=== PATIENT | female | born 1955 | race Caucasian/White ===

== ENCOUNTER 2019-09-19 09:51 | Outpatient (CLI) | payer BC, SELFPAY ==
--- NOTE | 2019-09-19 09:58 | MM_ITS ---
WS: [id number] SCREENING DIGITAL MAMMOGRAM WITH CAD HISTORY: SCREENING COMPARISON: 08/23/2017 and 06/15/2014 Bilateral CC and MLO views submitted. Computer aided detection analyzed. Breast composition: There are scattered areas of fibroglandular density. No suspicious masses, microc alcifications or architectural distortion. MM/[place] [id number] IMPRESSION: BI-RADS: 1-Negative FOLLOW UP: 1 Year Follow-up
== END 2019-09-19 09:52 | disposition home or self-care (01) ==
LOC: RADSHAW 09:57
PROVIDERS: Family Provider Family Medicine; Visit Provider Family Medicine
DX: Z12.31 Encounter for screening mammogram for malignant neoplasm of breast (principal)
CPT/HCPCS: 77067

== ENCOUNTER → 2019-11-21 12:28 | Outpatient (BNVA) | payer BC, SELFPAY | PROVIDERS: Family Provider Family Medicine; PCP Family Medicine; Visit Provider Internal Medicine Rheumatology | DX: M19.90 Unspecified osteoarthritis, unspecified site (principal); Z79.899 Other long term (current) drug therapy; Z11.59 Encounter for screening for other viral diseases; M77.9 Enthesopathy, unspecified; M54.89 Other dorsalgia | CPT/HCPCS: 85025 ==

== ENCOUNTER 2019-11-21 12:54 | Outpatient (CLI) | payer BC, SELFPAY ==
--- NOTE | 2019-11-21 13:01 | XR_ITS ---
WS: [id number] XR pelvis 1-2V* [id number] REASON FOR EXAM: inflammatory arthritis FINDINGS: Both the right left trochanter show degenerate changes. The hip joints appear to be normal. The sacroiliac joints were normal. The ilium, ischium, and pubis are normal. XR/XR pelvis 1-2V* [id number] IMPRESSION: Degenerate changes of the greater trochanter regions of both hip joints.
--- NOTE | 2019-11-21 13:01 | XR_ITS ---
WS: [id number] XR hand LT min 3V* [id number] REASON FOR EXAM: inflammatory arthritis FINDINGS degenerated changes of the first metacarpal carpal articulation. Considerable spurring is pr esent. There is swelling of soft tissue the middle interphalangeal joints of the second, third, fourth phala nges. XR/XR hand LT min 3V* [id number] IMPRESSION: Degenerated changes of the first metacarpal carpal carpal articulation. Marked soft tissue swelling of the interphalangeal joints of the second, third, fourth phalanges.
--- NOTE | 2019-11-21 13:01 | XR_ITS ---
WS: [id number] XR foot RT min 3V* [id number] REASON FOR EXAM: inflammatory arthritis FINDINGS: Prominent hallux angle with degenerate changes of the first metatarsal phalangeal junction and spurring is seen off the head of the first metatarsal. Large retrocalcaneal spur is seen. As well as a calcaneal spur. XR/XR foot RT min 3V* [id number] IMPRESSION: Calcaneal spur Retrocalcaneal exostosis Degenerate changes first metatarsal head. Psoarosis arthritis should be included in the differential diagnosis of both fe et.
--- NOTE | 2019-11-21 13:01 | XR_ITS ---
WS: [id number] XR foot LT min 3V* [id number] REASON FOR EXAM: inflammatory arthritis FINDINGS: Increase hallux angle first metatarsal tarsal phalangeal joint with degenerate changes. There is spurring seen off the head of the fifth metatarsal tarsal medially. No destructive changes of the phalanges metacarpals tarsals are tarsals. Calcaneal spur with retrocalcaneal exostosis. End reabsorptive changes off the posterior aspects of t he calcaneus. XR/XR foot LT min 3V* [id number] IMPRESSION: Hallux valgus changes Calcaneal spur line destructive changes off the posterior calcaneus Mixed arthritis should be considered with this pattern.
--- NOTE | 2019-11-21 13:01 | XR_ITS ---
WS: [id number] XR chest 2V* [id number] REASON FOR EXAM: inflammatory arthritis FINDINGS: The heart and mediastinum were normal. The lung rogers are well aerated. No active infiltrates, no pneumonia, pleural effusion, pulmonary ed vani, are mass effect. The hilum and apices normal. No osseous abnormalities other than degenerate spurring the thoracic spine. XR/XR chest 2V* [id number] IMPRESSION: Negative chest for active pathology.
--- NOTE | 2019-11-21 13:01 | XR_ITS ---
WS: [id number] XR hand RT min 3V* [id number] REASON FOR EXAM: inflammatory arthritis FINDINGS: Degenerated changes of the proximal first metacarpal carpal articulation. There is swelling of the interphalangeal joints of the second through fifth phalanges. No definite de structive changes. XR/XR hand RT min 3V* [id number] IMPRESSION: Degenerate changes of the first metacarpal carpal articulation. Soft tissue swelling of the second through the fifth intrapharyngeal joints.
== END 2019-11-21 12:55 | disposition home or self-care (01) ==
LOC: RADWPI 12:58
PROVIDERS: Family Provider Family Medicine; PCP Family Medicine; Visit Provider Internal Medicine Rheumatology
DX: M16.0 Bilateral primary osteoarthritis of hip (principal); M79.89 Other specified soft tissue disorders; Z79.899 Other long term (current) drug therapy; M19.90 Unspecified osteoarthritis, unspecified site; Z11.59 Encounter for screening for other viral diseases; Z11.1 Encounter for screening for respiratory tuberculosis; M77.9 Enthesopathy, unspecified; M54.89 Other dorsalgia; Z72.89 Other problems related to lifestyle
CPT/HCPCS: 36415; 71046; 72170; 73130; 73630; 80076; 82306; 82565; 84550; 85651; 86140; 86431; 86480; 86704; 86803; 86812; 87340; 99204

== ENCOUNTER 2020-02-08 13:47 | Outpatient (CLI) | payer BC, SELFPAY ==
--- NOTE | 2020-02-08 15:18 | PFTS_ITS ---
Date of Study:02/08/20 Date of Dictation: MECHANICS: Forced vital capacity (FVC) is normal. Forced expiratory volume in one second (FEV1) is normal.. FEV1/FVC is normal.. FLOW VOLUME LOOP: normal.. LUNG VOLUMES: Total lung capacity (TLC) is normal.. Residual volume (RV) is normal.. DIFFUSING CAPACITY FOR CARBON MONOXIDE: normal.. INTERPRETATION: The pulmonary function tests are normal. . MTDD
== END 2020-02-08 13:48 | disposition home or self-care (01) ==
PROVIDERS: Family Provider Family Medicine; PCP Family Medicine; Visit Provider Family Medicine
DX: R05 Cough (principal)
CPT/HCPCS: 94010; 94726; 94729

== ENCOUNTER 2020-02-23 10:34 | Outpatient (CLI) | payer BC, SELFPAY ==
--- NOTE | 2020-02-23 11:00 | MR_ITS ---
WS: [id number] MRI RIGHT KNEE NONCONTRAST TECHNIQUE: Axial PD, coronal PD fat sat, coronal PD, sagittal PD, and sagittal PD fat-sat images obta ined. CLINICAL INFORMATION: M25.469 Effusion, unspecified knee COMPARISON: None. FINDINGS: Distal quadriceps and patella tendons are intact. Moderate hypertrophic patella. Small joint effusion . Tiny amount of prepatellar soft tissue edema. Mild chronic thinning of the medial and lateral meniscus which appear intact. No acute appearing meni scal tears. Anterior and posterior cruciate ligaments are intact. Moderate to advanced chondromalacia patella with focal cartilage defects in the medial and lateral pa tella facet. Small amount of subchondral edema. Moderate narrowing at the patellofemoral articulation . Medial and lateral collateral ligaments are intact. Normal signal in the tibial plateau and femoral condyles. MR/MR knee RT wo con* [id number] IMPRESSION: 1. Anterior and posterior cruciate ligament are intact. 2. Moderate to advanced chondromalacia patella with a small amount of subchond ral edema. Moderate narrowing at the patellofemoral articulation. 3. Small joint effusion. 4. No acute meniscal tears. 5. Mild to moderate narrowing involving the medial greater than lateral joint compartments. Mild chondromalacia.
== END 2020-02-23 10:35 | disposition home or self-care (01) ==
LOC: RADSHAW 10:38
PROVIDERS: PCP Family Medicine; Visit Provider Internal Medicine Rheumatology
DX: M25.461 Effusion, right knee (principal); M25.561 Pain in right knee; M22.41 Chondromalacia patellae, right knee; R60.9 Edema, unspecified
CPT/HCPCS: 73721

== ENCOUNTER 2020-04-01 07:30 | Outpatient (RCR) | payer BC, SELFPAY | END 2020-04-05 23:59 | disposition home or self-care (01) | LOC: SPT 07:30 | PROVIDERS: PCP Family Medicine; Referring Provider Internal Medicine Rheumatology; Visit Provider Internal Medicine Rheumatology | DX: M19.90 Unspecified osteoarthritis, unspecified site (principal) | CPT/HCPCS: 97161 ==

== ENCOUNTER 2020-04-06 06:00 | Outpatient (RCR) | payer BC, SELFPAY | END 2020-05-06 23:59 | disposition home or self-care (01) | LOC: SPT 06:00 | PROVIDERS: PCP Family Medicine; Referring Provider Internal Medicine Rheumatology; Visit Provider Internal Medicine Rheumatology | DX: M19.90 Unspecified osteoarthritis, unspecified site (principal) | CPT/HCPCS: 97110 ==

== ENCOUNTER 2020-05-03 11:04 | Outpatient (CLI) | payer BC, SELFPAY ==
--- NOTE | 2020-05-03 11:10 | XR_ITS ---
WS: [id number] Chest 2 views, 05/03/2020 Clinical Data: Pneumonia resolution Comparison: PA and lateral chest, 01/23/2020. Findings: No nodules, masses or effusions are seen. The heart is normal. The pulmonary vascularity is not increased. No pneumonia or pneumothorax is seen. XR/XR chest 2V* [id number] Impression: Negative chest.
[2020-05-03 11:34] LABS: Basophils # 0.1 10^3/uL (0.0-0.1); Basophils % 0.6 %; Eosinophils # 0.4 10^3/uL (0.0-0.8); Eosinophils % 4.2 %; Hematocrit 43.8 % (37.0-47.0); Hemoglobin 14.5 g/dL (11.5-15.3); Lymphocytes # 2.7 10^3/uL (0.8-4.8); Lymphocytes % 27.2 %; Mean Corpuscular HGB Conc 33.1 g/dL (30.0-36.0); Mean Corpuscular Hemoglobin 30.5 pg (28.0-34.0); Mean Corpuscular Volume 92.2 fL (81-99); Mean Platelet Volume 10.2 fL (7.4-10.4); Monocytes # 0.7 10^3/uL (0.2-0.9); Monocytes % 7.5 %; Neutrophils # 5.96 10^3/uL (1.8-7.7); Neutrophils % 60.3 %; Nucleated Red Blood Cells % 0 %; Platelet Count 279 10^3/cmm (130-400); Red Blood Count 4.75 10^6/uL (4.1-5.3); Red Cell Distribution Width 14.3 % (12.1-15.1); White Blood Count 9.9 10^3/uL (4.0-10.0)
[2020-05-06 16:32] LABS: Alternaria Alternata (M6) Ige <0.10 kU/L; Alternaria Class 0; Bermuda Class 0; Bermuda Grass (G2) Ige <0.10 kU/L; Cat Dander (E1) Ige 0.26 kU/L; Cat Dander Class 0/1; Common Ragweed (Short) (W1) Ig 0.38 kU/L; D. Farinae Class 0/1; Dermatophagoides Class 0/1; Dermatophagoides Farinae (D2) 0.13 kU/L; Dermatophagoides Pteronyssinus 0.17 kU/L; Dog Dander (E5) Ige 0.53 kU/L; Dog Dander Class 1; Elm (T8) Ige <0.10 kU/L; Elm Class 0; English Plantain (W9) Ige <0.10 kU/L; English Plantain Class 0; House Dust (Greer) (H1) Ige 0.21 kU/L; House Dust (Hollister- Stier) 0.63 kU/L; House Dust Class 0/1; House Dust Class 1; Immunoglobulin E 76 kU/L (<OR=114); Immunoglobulin E 83 kU/L (<OR=114); Johnson Grass (G10) Ige <0.10 kU/L; Johnson Grass Cl 0; June Grass Class 0; June Grass(Kentucky Blue) (G8) <0.10 kU/L; Lamb'S Quarters (Goose Foot) <0.10 kU/L; Lamb'S Quarters Class 0; Maple (Box Elder) (T1) Ige <0.10 kU/L; Maple Class 0; Meadow Fescue (G4) Ige <0.10 kU/L; Meadow Fescue Class 0; Mucor Racemosus Class 0; Oak (T7) Ige <0.10 kU/L; Oak Class 0; Orchard Grass (Cocksfoot) (G3) <0.10 kU/L; Penicillium Class 0; Penicillium Notatum (M1) Ige <0.10 kU/L; Perennial Rye Grass (G5) Ige <0.10 kU/L; Perennial Rye Grass Class 0; Ragweeed Class 1; Rough Marsh Elder (W16) Ige <0.10 kU/L; Rough Marsh Elder Class 0; Sweet Vernal Class 0; Sweet Vernal Grass (G1) Ige <0.10 kU/L; Timothy Grass (G6) Ige <0.10 kU/L; Timothy Grass Class 0
[2020-05-07 19:27] LABS: Aspergillus Fumigatus, Igg Ab, 13.9 mg/L (<=102)
== END 2020-05-03 11:05 | disposition home or self-care (01) ==
LOC: RAD 11:07
PROVIDERS: PCP Family Medicine; Visit Provider Internal Medicine Pulmonary Disease
DX: J30.9 Allergic rhinitis, unspecified (principal); R05 Cough; R06.2 Wheezing; R06.02 Shortness of breath
CPT/HCPCS: 36415; 71046; 82785; 85025; 86003

== ENCOUNTER 2020-05-07 06:00 | Outpatient (RCR) | payer BC, SELFPAY | END 2020-05-20 16:09 | disposition home or self-care (01) | LOC: SPT 06:00 | PROVIDERS: PCP Family Medicine; Referring Provider Internal Medicine Rheumatology; Visit Provider Internal Medicine Rheumatology | DX: M19.90 Unspecified osteoarthritis, unspecified site (principal) | CPT/HCPCS: 97110 ==

== ENCOUNTER → 2020-05-17 09:50 | Outpatient (BNVA) | payer BC, SELFPAY | PROVIDERS: PCP Family Medicine; Visit Provider Internal Medicine | DX: Z11.59 Encounter for screening for other viral diseases (principal) | CPT/HCPCS: 87635 ==

== ENCOUNTER 2020-05-20 13:17 | Outpatient (CLI) | payer BC, SELFPAY ==
--- NOTE | 2020-05-20 15:01 | PFTS_ITS ---
Date of Study:05/20/20 Date of Dictation: MECHANICS: Forced vital capacity (FVC) is normal. Forced expiratory volume in one second (FEV1) is normal. FEV1/FVC is normal. FLOW VOLUME LOOP: Normal. LUNG VOLUMES: Not measured DIFFUSING CAPACITY FOR CARBON MONOXIDE: Not measured INTERPRETATION: The prebronchodilator spirometry is normal. There is no significant postbronchodilator response. The methacholine challenge test was negative. PC 20 was not achieved. MTDD
== END 2020-05-20 13:18 | disposition home or self-care (01) ==
PROVIDERS: PCP Family Medicine; Visit Provider Internal Medicine Pulmonary Disease
DX: R05 Cough (principal)
CPT/HCPCS: 94070; J7611

== ENCOUNTER → 2020-07-18 11:16 | Outpatient (BNVA) | payer BC, SELFPAY | PROVIDERS: PCP Family Medicine; Visit Provider Internal Medicine Rheumatology | DX: M19.041 Primary osteoarthritis, right hand (principal); M19.042 Primary osteoarthritis, left hand; M77.9 Enthesopathy, unspecified; M11.232 Other chondrocalcinosis, left wrist; M77.00 Medial epicondylitis, unspecified elbow; M77.10 Lateral epicondylitis, unspecified elbow; Z79.899 Other long term (current) drug therapy; Z87.891 Personal history of nicotine dependence | CPT/HCPCS: 99214 ==

== ENCOUNTER → 2020-09-17 10:57 | Outpatient (BNVA) | payer BC, SELFPAY | PROVIDERS: PCP Family Medicine; Visit Provider Internal Medicine Rheumatology | DX: Z79.899 Other long term (current) drug therapy (principal) | CPT/HCPCS: 36415; 80076; 82565; 85025; 85651; 86140 ==

== ENCOUNTER 2020-10-03 11:46 | Outpatient (CLI) | payer BC, SELFPAY ==
--- NOTE | 2020-10-03 11:52 | XR_ITS ---
WS: [id number] CHEST 2 VIEWS HISTORY: K21.9 - Gastro-esophageal reflux disease without esophagitis COMPARISON: 05/03/2020 Lungs: Clear with no abnormality. No pleural effusion or pneumothorax. Cardiac size: Normal. Mediastinum/Aorta: Normal mediastinum. Bones: Thoracolumbar scoliosis. XR/XR chest 2V* [id number] IMPRESSION: Normal chest.
== END 2020-10-03 11:47 | disposition home or self-care (01) ==
LOC: RADWPI 11:50
PROVIDERS: PCP Family Medicine; Visit Provider Internal Medicine Rheumatology
DX: K21.9 Gastro-esophageal reflux disease without esophagitis (principal)
CPT/HCPCS: 71046

== ENCOUNTER 2020-10-29 10:55 | Outpatient (CLI) | payer BC, SELFPAY ==
--- NOTE | 2020-10-29 11:05 | MM_ITS ---
WS: [id number] Exam: [place] [id number] Date/Time of Exam: 10/29/2020 11:21 AM Reason For Exam: SCREENING VIEWS: MLO and CC views both breasts. Comparison made with prior exam of 09/19/2019 and 2016. Findings: There was no sign of mass, architectural distortion or suspicious calcification in either breast. Sc attered fibroglandular densities MM/[place] [id number] Impression: BI-RADS: 2-Benign FOLLOW-UP: 1 Year Follow-up This mammogram was also analyzed by the Computer Aided Detection System R2 Imag e Steam Room Attendant.
== END 2020-10-29 10:56 | disposition home or self-care (01) ==
PROVIDERS: PCP Family Medicine; Visit Provider Family Medicine
DX: Z12.31 Encounter for screening mammogram for malignant neoplasm of breast (principal)
CPT/HCPCS: 77067

== ENCOUNTER → 2020-12-10 12:45 | Outpatient (BNVA) | payer BC, SELFPAY | PROVIDERS: PCP Family Medicine; Visit Provider Internal Medicine Rheumatology | DX: M19.041 Primary osteoarthritis, right hand (principal); M19.042 Primary osteoarthritis, left hand; Z79.899 Other long term (current) drug therapy; M77.9 Enthesopathy, unspecified; M11.20 Other chondrocalcinosis, unspecified site; Z87.891 Personal history of nicotine dependence | CPT/HCPCS: 99214 ==

== ENCOUNTER → 2021-03-19 14:47 | Outpatient (BNVA) | payer BC, SELFPAY | PROVIDERS: PCP Family Medicine; Visit Provider Internal Medicine Rheumatology | DX: M06.9 Rheumatoid arthritis, unspecified (principal); M19.90 Unspecified osteoarthritis, unspecified site; Z79.899 Other long term (current) drug therapy; M77.9 Enthesopathy, unspecified; M11.20 Other chondrocalcinosis, unspecified site; Z87.891 Personal history of nicotine dependence | CPT/HCPCS: 36415; 80076; 82565; 85025; 86140; 99214 ==

== ENCOUNTER → 2021-07-08 15:17 | Outpatient (BNVA) | payer MEDICARE, SELFPAY | PROVIDERS: PCP Family Medicine; Referring Provider Family Medicine; Visit Provider Podiatrist Foot & Ankle Surgery | DX: M21.612 Bunion of left foot (principal); M21.611 Bunion of right foot; M19.072 Primary osteoarthritis, left ankle and foot; M79.671 Pain in right foot; M79.672 Pain in left foot | CPT/HCPCS: 73630 ==

== ENCOUNTER → 2021-10-06 14:58 | Outpatient (BNVA) | payer MEDICARE, SELFPAY | PROVIDERS: PCP Family Medicine; Visit Provider Internal Medicine Rheumatology | DX: M19.041 Primary osteoarthritis, right hand (principal); M19.042 Primary osteoarthritis, left hand; M11.20 Other chondrocalcinosis, unspecified site; M77.11 Lateral epicondylitis, right elbow; M77.12 Lateral epicondylitis, left elbow; M77.01 Medial epicondylitis, right elbow; M77.02 Medial epicondylitis, left elbow; Z82.61 Family history of arthritis | CPT/HCPCS: 99214 ==

== ENCOUNTER 2021-11-12 13:05 | Outpatient (CLI) | payer MEDICARE, SELFPAY ==
--- NOTE | 2021-11-12 13:10 | MM_ITS ---
WS: [id number] BILATERAL SCREENING 3D TOMOSYNTHESIS DIGITAL MAMMOGRAM WITH CAD HISTORY: SCREENING COMPARISON: 10/29/2020, 09/19/2019 and 08/23/2017 Bilateral CC and MLO views submitted. Computer aided detection analyzed. Breast composition: There are scattered areas of fibroglandular density. No suspicious masses, microc alcifications or architectural distortion. Focal scar in the medial inferior LEFT breast is probably from prior documented staph infection. MM/[place] [id number] IMPRESSION: BI-RADS: 2-Benign FOLLOW UP: 1 Year Follow-up
== END 2021-11-12 13:06 | disposition home or self-care (01) ==
LOC: RADSHAW 13:06
PROVIDERS: PCP Family Medicine; Visit Provider Family Medicine
DX: Z12.31 Encounter for screening mammogram for malignant neoplasm of breast (principal)
CPT/HCPCS: 77063; 77067

== ENCOUNTER 2022-12-09 12:29 | Outpatient (CLI) | payer MEDICARE, SELFPAY ==
--- NOTE | 2022-12-09 12:47 | MM_ITS ---
WS: [id number] BILATERAL 3D TOMOSYNTHESIS DIGITAL SCREENING MAMMOGRAPHY WITH CAD CLINICAL INFORMATION: SCREENING HISTORY: Screening mammogram. No current complaints. COMPARISON: 2021 TECHNIQUE: Bilateral CC and MLO views. FINDINGS: Scattered fibroglandular densities bilaterally. No suspicious focal mass, asymmetry, calcifications, or architectural distortion. No evidence of malignancy. Vascular calcification. A few punctate calcif ications. MM/[place] [id number] IMPRESSION: BI-RADS: 2-Benign FOLLOW UP: 1 Year Follow-up Recommend return to annual screening mammography.
== END 2022-12-09 12:30 | disposition home or self-care (01) ==
LOC: RAD 12:31
PROVIDERS: PCP Family Medicine; Visit Provider Family Medicine
DX: Z12.31 Encounter for screening mammogram for malignant neoplasm of breast (principal)
CPT/HCPCS: 77063; 77067

== ENCOUNTER → 2023-03-31 14:55 | Outpatient (BNVA) | payer MEDICARE, SELFPAY | PROVIDERS: PCP Family Medicine; Visit Provider Internal Medicine Rheumatology | DX: M06.041 Rheumatoid arthritis without rheumatoid factor, right hand (principal); M06.042 Rheumatoid arthritis without rheumatoid factor, left hand; Z79.899 Other long term (current) drug therapy; M19.041 Primary osteoarthritis, right hand; M19.042 Primary osteoarthritis, left hand; M11.20 Other chondrocalcinosis, unspecified site | CPT/HCPCS: 99214 ==

== ENCOUNTER 2023-05-03 08:37 | Outpatient (CLI) | payer MEDICARE, SELFPAY ==
[2023-05-03 09:22] LABS: Basophils # 0.1 10^3/uL (0.0-0.1); Basophils % 0.9 %; Eosinophils # 0.4 10^3/uL (0.0-0.8); Eosinophils % 5.3 %; Hematocrit 41.7 % (36-47); Lymphocytes # 2.2 10^3/uL (0.8-4.8); Lymphocytes % 26.8 %; Mean Corpuscular HGB Conc 33.6 g/dL (30-55); Mean Corpuscular Hemoglobin 31.2 pg (27-33); Mean Corpuscular Volume 92.9 fl (85-98); Mean Platelet Volume 10.6 fL (7.4-10.4); Monocytes # 0.8 10^3/uL (0.2-0.9); Monocytes % 9.4 %; Neutrophils # 4.69 10^3/uL (1.8-7.7); Neutrophils % 57.4 %; Nucleated Red Blood Cells % 0 %; Platelet Count 275 10^3/cmm (157-399); Red Blood Count 4.49 10^6/uL (3.85-5.65); Red Cell Distribution Width 13.7 % (12.1-15.1); White Blood Count 8.17 10^3/uL (3.29-11.43)
[2023-05-03 09:42] LABS: Alanine Aminotransferase 26 U/L (0-33); Albumin Level 4.3 g/dL (3.5-5.2); Alkaline Phosphatase 71 U/L (35-105); Aspartate Amino Transferase 25 U/L (0-32); C Reactive Protein 3.1 mg/L (0.0-4.9); Globulin 2.4 g/dL (1.3-4.6); Total Bilirubin 0.4 mg/dL (0.15-1.2); Total Protein 6.7 g/dL (6.6-8.7)
== END 2023-05-03 08:38 | disposition home or self-care (01) ==
PROVIDERS: PCP Family Medicine; Visit Provider Internal Medicine Rheumatology
DX: M06.041 Rheumatoid arthritis without rheumatoid factor, right hand (principal); M06.042 Rheumatoid arthritis without rheumatoid factor, left hand; Z79.899 Other long term (current) drug therapy
CPT/HCPCS: 36415; 80076; 82565; 85025; 86140

== ENCOUNTER 2023-12-13 08:56 | Outpatient (CLI) | payer MEDICARE, SELFPAY ==
--- NOTE | 2023-12-13 09:01 | MM_ITS ---
WS: [id number] BILATERAL 3D TOMOSYNTHESIS DIGITAL SCREENING MAMMOGRAPHY WITH CAD CLINICAL INFORMATION: SCREENING HISTORY: Screening mammogram. No current complaints. COMPARISON: 12/09/2022 TECHNIQUE: Bilateral CC and MLO views. FINDINGS: Scattered fibroglandular densities bilaterally. No suspicious focal mass, asymmetry, calcifications, or architectural distortion. No evidence of malignancy. Tiny incidental punctate calcification LEFT b reast. Symmetric tiny punctate calcifications in the deep axilla bilaterally likely due to lotion or deodorant. This has been present on prior studies. IMPRESSION: MM/[place] [id number] BI-RADS: 2-Benign FOLLOW UP: 1 Year Follow-up Recommend return to annual screening mammography.
== END 2023-12-13 08:57 | disposition home or self-care (01) ==
LOC: RAD 08:57
PROVIDERS: PCP Family Medicine; Visit Provider Family Medicine
DX: Z12.31 Encounter for screening mammogram for malignant neoplasm of breast (principal)
CPT/HCPCS: 77063; 77067

== ENCOUNTER → 2024-01-10 09:49 | Outpatient (BNVA) | payer MEDICARE, SELFPAY | PROVIDERS: PCP Family Medicine; Visit Provider Podiatrist Foot & Ankle Surgery | DX: M21.6X1 Other acquired deformities of right foot (principal); M21.6X2 Other acquired deformities of left foot | CPT/HCPCS: 99213 ==

== ENCOUNTER 2024-02-28 09:08 | Outpatient (CLI) | payer MEDICARE, SELFPAY | END 2024-02-28 09:09 | disposition home or self-care (01) | LOC: SPT 09:08 | PROVIDERS: PCP Family Medicine; Visit Provider Podiatrist Foot & Ankle Surgery | DX: Z46.89 Encounter for fitting and adjustment of other specified devices (principal); M72.2 Plantar fascial fibromatosis; M21.6X9 Other acquired deformities of unspecified foot; M79.673 Pain in unspecified foot | CPT/HCPCS: L3030 ==

== ENCOUNTER → 2024-07-24 15:04 | Outpatient (BNVA) | payer MEDICARE, SELFPAY | PROVIDERS: PCP Family Medicine; Visit Provider Podiatrist Foot & Ankle Surgery | DX: M21.6X1 Other acquired deformities of right foot (principal); M21.6X2 Other acquired deformities of left foot | CPT/HCPCS: 99213 ==

== ENCOUNTER → 2024-10-16 14:13 | Outpatient (BNVA) | payer MEDICARE, BC, SELFPAY | PROVIDERS: PCP Family Medicine; Visit Provider Podiatrist Foot & Ankle Surgery | DX: M21.6X1 Other acquired deformities of right foot (principal); M21.6X2 Other acquired deformities of left foot | CPT/HCPCS: 99213 ==

== ENCOUNTER 2024-12-13 08:04 | Outpatient (CLI) | payer MEDICARE, BC, SELFPAY ==
--- NOTE | 2024-12-13 08:14 | MM_ITS ---
WS: [id number] BILATERAL SCREENING DIGITAL TOMOSYNTHESIS MAMMOGRAM WITH CAD HISTORY: SCREENING COMPARISON: 12/13/2023, 12/09/2022 Bilateral CC and MLO views with tomosynthesis and synthetic mammography submitted. Computer aided detection analyzed. Breast composition: There are scattered areas of fibroglandular density. No suspicious masses, microcalcifications or architectural distortion. MM/MM scr BI tomosynthesis [id number] IMPRESSION: BI-RADS: 2 - Benign. FOLLOW UP: 1 Year Follow-up
== END 2024-12-13 08:05 | disposition home or self-care (01) ==
LOC: RAD 08:05
PROVIDERS: PCP Family Medicine; Visit Provider Family Medicine
DX: Z12.31 Encounter for screening mammogram for malignant neoplasm of breast (principal); R92.323 Mammographic fibroglandular density, bilateral breasts
CPT/HCPCS: 77063; 77067

== ENCOUNTER → 2025-03-22 09:04 | Outpatient (BNVA) | payer MEDICARE, BC, SELFPAY | PROVIDERS: PCP Family Medicine; Visit Provider Internal Medicine Rheumatology | DX: M19.041 Primary osteoarthritis, right hand (principal); M19.042 Primary osteoarthritis, left hand; M11.20 Other chondrocalcinosis, unspecified site; Z79.1 Long term (current) use of non-steroidal anti-inflammatories (NSAID) | CPT/HCPCS: 36415; 80076; 82306; 82565; 83520; 85025; 85651; 86140; 99214 ==

== ENCOUNTER 2025-04-11 07:22 | Outpatient (CLI) | payer MEDICARE, BC, SELFPAY ==
--- NOTE | 2025-04-11 07:30 | XR_ITS ---
WS: [id number] XR lumbar spine 2-3V* [id number] REASON FOR EXAM: M54.50 - Low back pain, unspecified FINDINGS: Moderate rotatory dextroscoliosis. Relatively normal lordosis. Mild superior endplate compression deformities of L1 and L2. The L1-L2 disc space is intact however there is significant vertebral body osteophytosis anteriorly and right lateral. Mild narrowing of the L2-L3 disc space with moderate endplate sclerosis and osteophytosis. Remaining disc spaces are intact with minimal narrowing with mild osteophytosis. No spondylolysis. 3 to 4 mm of anterolisthesis of L4 on L5. Significant facet joint arthropathy L3-S1. XR/XR lumbar spine 2-3V* [id number] IMPRESSION: Lumbar degenerative spondylosis as above.
== END 2025-04-11 07:23 | disposition home or self-care (01) ==
PROVIDERS: PCP Family Medicine; Visit Provider Internal Medicine Rheumatology
DX: M54.50 Low back pain, unspecified (principal); M47.816 Spondylosis without myelopathy or radiculopathy, lumbar region
CPT/HCPCS: 72100

== ENCOUNTER → 2025-04-26 15:11 | Outpatient (BNVA) | payer MEDICARE, BC, SELFPAY | PROVIDERS: PCP Family Medicine; Visit Provider Orthopaedic Surgery | DX: M54.9 Dorsalgia, unspecified (principal); M54.89 Other dorsalgia; M46.1 Sacroiliitis, not elsewhere classified | CPT/HCPCS: 72072; 72110; 99204 ==

== ENCOUNTER → 2025-05-14 14:14 | Outpatient (BNVA) | payer MEDICARE, BC, SELFPAY | PROVIDERS: PCP Family Medicine; Referring Provider Orthopaedic Surgery; Visit Provider Anesthesiology Pain Medicine | DX: M47.816 Spondylosis without myelopathy or radiculopathy, lumbar region (principal); M54.89 Other dorsalgia | CPT/HCPCS: 99204 ==

== ENCOUNTER 2025-07-10 13:38 | Outpatient (CLI) | payer MEDICARE, BC, SELFPAY ==
[2025-07-10 14:09] LABS: Hematocrit 39.8 % (36-47); Hemoglobin 13.40 g/dL (11.27-16.99); Mean Corpuscular HGB Conc 33.7 g/dL (30-55); Mean Corpuscular Hemoglobin 30.5 pg (27-33); Mean Corpuscular Volume 90.5 fl (85-98); Nucleated Red Blood Cells % 0 %; Platelet Count 292 10^3/cmm (157-399); Red Blood Count 4.40 10^6/uL (3.85-5.65); White Blood Count 8.39 10^3/uL (3.29-11.43)
[2025-07-10 14:24] LABS: Alanine Aminotransferase 35 U/L (0-33); Albumin Level 4.7 g/dL (3.5-5.2); Alkaline Phosphatase 83 U/L (35-105); Aspartate Amino Transferase 30 U/L (0-32); Globulin 2.7 g/dL (1.3-4.6); Total Protein 7.4 g/dL (6.6-8.7)
== END 2025-07-10 13:39 | disposition home or self-care (01) ==
LOC: LAB 13:40
PROVIDERS: PCP Family Medicine; Visit Provider Internal Medicine Rheumatology
DX: Z79.899 Other long term (current) drug therapy (principal); M19.041 Primary osteoarthritis, right hand; M19.042 Primary osteoarthritis, left hand; M11.20 Other chondrocalcinosis, unspecified site; Z79.1 Long term (current) use of non-steroidal anti-inflammatories (NSAID); Z98.890 Other specified postprocedural states
CPT/HCPCS: 36415; 80076; 82565; 85025; 85651; 86140; 99214

== ENCOUNTER → 2025-07-24 07:58 | Outpatient (BNVA) | payer MEDICARE, BC, SELFPAY | PROVIDERS: PCP Family Medicine; Visit Provider Orthopaedic Surgery | DX: M47.816 Spondylosis without myelopathy or radiculopathy, lumbar region (principal) | CPT/HCPCS: 99213 ==

== ENCOUNTER 2025-08-01 15:37 | Outpatient (CLI) | payer MEDICARE, BC, SELFPAY ==
--- NOTE | 2025-08-01 16:00 | MRR_ITS ---
PROCEDURE INFORMATION: Exam: MR Lumbar Spine Without Contrast Exam date and time: 08/01/2025 4:16 PM Age: 70 years old Clinical indication: Chronic low back pain, arthritis; Additional info: Pain in lumbar TECHNIQUE: Imaging protocol: Magnetic resonance imaging of the lumbar spine without contrast. COMPARISON: CR XR lumbar spine min 4V [id number] 04/26/2025 3:13 PM FINDINGS: Bones/joints: The vertebral marrow signal is maintained. There is anterior degenerative spondylosis at L2-L5. There is a Schmorl's node at L4-L5. Lumbar vertebral bodies demonstrate a normal height. Vertebral alignment is anatomic. Spinal cord: Visualized cord, conus medullaris and cauda equina are unremarkable without compression. Conus medullaris is located at the T12-L1 level and is normal in signal intensity. L1-L2: No significant disc bulge or herniation. No severe spinal canal stenosis. No significant neural foraminal narrowing. L2-L3: No significant disc bulge or herniation. No severe spinal canal stenosis. No significant neural foraminal narrowing. L3-L4: No significant disc bulge or herniation. No severe spinal canal stenosis. No significant neural foraminal narrowing. L4-L5: There is a mild right foraminal disc bulge with mild bilateral facet arthrosis causing severe right neural foraminal stenosis with severe spinal canal stenosis and compression of the cauda equina. L5-S1: No significant disc bulge or herniation. No severe spinal canal stenosis. No significant neural foraminal narrowing. Moderate bilateral facet arthrosis is seen. Soft tissues: Unremarkable. Retroperitoneum:The retroperitoneum is unremarkable. There are small bilateral renal cysts. MR/MR lumbar spine wo con* [id number] IMPRESSION: 1. Right foraminal disc bulge causing severe right neural foraminal stenosis, severe spinal canal stenosis, and cauda equina compression. 2. Degenerative spondylosis as above. 3. Small bilateral renal cysts. No follow-up is needed. Bosniak I and II: No follow-up is typically required unless the cyst becomes symptomatic. These cysts are considered benign and have a very low risk of malignancy. COMMENTS: Consistent with the [employer]'s Incidental Findings Committee white paper (J Am David Radiol 2018): Any incidental renal lesion less than 1 cm or classified as too small to characterize, or any incidental cystic renal lesion characterized as simple-appearing, is likely benign. No follow-up imaging is recommended for these lesions per consensus recommendations based on imaging criteria.
== END 2025-08-01 15:38 | disposition home or self-care (01) ==
PROVIDERS: PCP Family Medicine; Visit Provider Orthopaedic Surgery
DX: M47.816 Spondylosis without myelopathy or radiculopathy, lumbar region (principal); M51.369 Other intervertebral disc degeneration, lumbar region without mention of lumbar back pain or lower extremity pain; M48.062 Spinal stenosis, lumbar region with neurogenic claudication; M48.061 Spinal stenosis, lumbar region without neurogenic claudication; G83.4 Cauda equina syndrome; N28.1 Cyst of kidney, acquired; M46.96 Unspecified inflammatory spondylopathy, lumbar region; M15.8 Other polyosteoarthritis
CPT/HCPCS: 72148